=== PATIENT | male | born 1960 | race Caucasian/White ===

== ENCOUNTER 2021-11-20 17:16 | Inpatient (IN) ==
[2021-11-20 19:34] LABS: Basophils % 0.2 % (0.0-0.8); Eosinophils # 0.2 10*3/uL (0.0-0.87); Eosinophils % 3.4 % (0.00-10.9); Hematocrit 35.6 VOL% (42.0-52.0); Immature Granulocytes % 0.7 %; Immature Granulocytes Absolute 0.04 #; Lymphocytes # 0.3 10*3/uL (1.4-4.0); Lymphocytes % 5.6 % (21.2-54.2); Mean Corpuscular HGB Conc 30.9 GM/DL (32-36); Mean Corpuscular Volume 92.5 FL (87-102); Mean Platelet Volume 10.9 FL (9.6-12.0); Monocytes % 11.1 % (1.7-12.7); Platelet Count 111 T/CUMM (130-400); Red Blood Count 3.85 MC/CUMM (3.8-5.5); Red Cell Distribution Width 17.3 % (9.3-17.3); White Blood Count 5.6 T/CUMM (4-12)
[2021-11-20 20:02] LABS: Albumin 2.3 G/DL (3.4-5.0); Bilirubin,Total 0.6 MG/DL (0.20-1.00); Calcium 7.5 MG/DL (8.5-10.1); Osmolality,Calculated 275.4 MOS/KG (273-304); Total Protein 6.4 G/DL (6.4-8.2)
[2021-11-20] MEDS ORDERED: cefTRIAXone 1,000 MG in SODIUM CHLORIDE 0.9% 100 ML IV STA (20:26)
[2021-11-20] MEDS ORDERED: MAGNESIUM SULF RIDER 1 GM/100 ML PREMIX IV STA (20:26)
[2021-11-20] MEDS ORDERED: POTASSIUM CHLORIDE 20 MEQ TABLET PO STA (20:26)
[2021-11-20] MEDS ORDERED: MAGNESIUM SULF RIDER 2 GM/50 ML PREMIX IV STA (20:51)
[2021-11-20] MEDS ORDERED: DEXTROSE 50% 25 GM/50 ML VIAL IV PRN (21:38)
[2021-11-20] MEDS ORDERED: GLUCAGON 1 MG VIAL IM PRN ×2 (21:38)
[2021-11-20] MEDS ORDERED: DEXTROSE 50% 25 GM/50 ML SYRINGE IV PRN (21:38)
[2021-11-20] MEDS ORDERED: ACETAMINOPHEN 325 MG TABLET PO PRN (21:38)
[2021-11-20] MEDS ORDERED: ONDANSETRON 4 MG/2 ML VIAL IV PRN (21:38)
[2021-11-20] MEDS ORDERED: MAGNESIUM SULF RIDER 4 GM/100 ML PREMIX IV PRN (22:14)
[2021-11-20] MEDS ORDERED: MAGNESIUM SULF RIDER 2 GM/50 ML PREMIX IV PRN (22:14)
[2021-11-20] MEDS ORDERED: POTASSIUM CHLORIDE 20 MEQ TABLET PO PRN (22:15)
[2021-11-20] MEDS ORDERED: DIPHENOXYLATE/ATROPINE 2.5-0.025 MG TABLET PO PRN (22:19)
[2021-11-20] MEDS ORDERED: CALCIUM CARBONATE CHEW 500 MG TABLET PO PRN (22:19)
[2021-11-20] MEDS ORDERED: CYCLOBENZAPRINE 10 MG TABLET PO PRN (22:19)
[2021-11-20] MEDS: SODIUM CHLOR 0.9% KCL 40 MEQ 40 MEQ/1,000 ML BAG IV SCH (22:26)
[2021-11-20] MEDS: AZITHROMYCIN INJ 500 MG in SODIUM CHLORIDE 0.9% 250 ML IV SCH (22:43)
[2021-11-21 06:38] LABS: Basophils % 0.2 % (0.0-0.8); Eosinophils # 0.2 10*3/uL (0.0-0.87); Eosinophils % 4.4 % (0.00-10.9); Hematocrit 31.7 VOL% (42.0-52.0); Hemoglobin 9.7 GM/DL (14.0-18.0); Immature Granulocytes % 0.5 %; Immature Granulocytes Absolute 0.02 #; Lymphocytes # 0.3 10*3/uL (1.4-4.0); Lymphocytes % 6.7 % (21.2-54.2); Mean Corpuscular HGB Conc 30.6 GM/DL (32-36); Mean Corpuscular Volume 93.5 FL (87-102); Mean Platelet Volume 10.6 FL (9.6-12.0); Monocytes % 14.8 % (1.7-12.7); Neutrophils % 73.4 % (38.7-73.9); Platelet Count 111 T/CUMM (130-400); Red Blood Count 3.39 MC/CUMM (3.8-5.5); Red Cell Distribution Width 17.3 % (9.3-17.3); White Blood Count 4.3 T/CUMM (4-12)
[2021-11-21] MEDS: ALBUTEROL/IPRATROPIUM 3 ML NEB RESP TX SCH ×3 (06:55→19:15)
[2021-11-21 07:01] LABS: Osmolality,Calculated 280.3 MOS/KG (273-304); Potassium 3.2 MMOL/L (3.5-5.1)
[2021-11-21 07:03] LABS: Band Neutrophils 1 % (0-10); Eosinophils 4 % (0-10); Hypochromia 1+; Lymphocytes 10 % (20-55); Microcytosis 1+; Segmented Neutrophils 70 % (50-85); Total Cells Counted 100
[2021-11-21 07:05] LABS: Risk Ratio 3.58; VLDL Cholesterol 24.2 MG/DL
[2021-11-21] MEDS: MORPHINE ER 30 MG TABLET PO SCH ×2 (08:53→20:30)
[2021-11-21] MEDS: METOPROLOL TARTRATE 50 MG TABLET PO SCH ×2 (08:53→20:30)
[2021-11-21] MEDS: PANTOPRAZOLE 40 MG TABLET PO SCH (08:53)
[2021-11-21] MEDS: MAGNESIUM OXIDE 400 MG TABLET PO SCH ×2 (08:53→20:29)
[2021-11-21] MEDS: CHOLECALCIFEROL 1,000 UNIT TABLET PO SCH (08:53)
[2021-11-21] MEDS: CALCIUM (CARBONATE)/VITAMIN D 600 MG-400 UNIT TABLET PO SCH (08:53)
[2021-11-21] MEDS: LEVOTHYROXINE 175 MCG TABLET PO SCH (08:53)
[2021-11-21] MEDS: CYANOCOBALAMIN 500 MCG TABLET PO SCH (08:54)
[2021-11-21] MEDS: POTASSIUM CHLORIDE 20 MEQ TABLET PO SCH (08:54)
[2021-11-21] MEDS: PREGABALIN 75 MG CAPSULE PO SCH ×2 (08:54→20:31)
[2021-11-21] MEDS ORDERED: APIXABAN 5 MG TABLET PO SCH (09:00)
[2021-11-21] MEDS ORDERED: ENOXAPARIN 40 MG/0.4 ML SYRINGE SUBCUT SCH (09:00)
[2021-11-21] MEDS ORDERED: INFLUENZA VIRUS VACCINE 0.5 ML SYRINGE IM ONE (09:00)
[2021-11-21] MEDS: LENVATINIB PO SCH (10:08)
[2021-11-21] MEDS: INSULIN LISPRO 100 UNIT/ML SUBCUT SCH ×4 (10:08→20:36)
[2021-11-21] MEDS: EVEROLIMUS 5 MG PO SCH (10:08)
[2021-11-21] MEDS: SODIUM CHLOR 0.9% KCL 40 MEQ 40 MEQ/1,000 ML BAG IV SCH (11:48)
[2021-11-21] MEDS: ENOXAPARIN 100 MG/ML SYRINGE SUBCUT SCH (19:12)
[2021-11-21] MEDS: CEFEPIME 1,000 MG in SODIUM CHLORIDE 0.9% 100 ML IV SCH ×2 (19:14→23:30)
[2021-11-21] MEDS: POTASSIUM CHLORIDE RIDER 10 MEQ/100 ML PREMIX IV SCH ×2 (19:45→20:53)
[2021-11-21] MEDS: ATORVASTATIN 10 MG TABLET PO SCH (20:30)
[2021-11-21] MEDS ORDERED: cefTRIAXone 1,000 MG in SODIUM CHLORIDE 0.9% 100 ML IV SCH (21:00)
[2021-11-21] MEDS ORDERED: OMEGA 3 ACID ETHYL ESTERS 1 GM CAPSULE PO SCH (21:00)
[2021-11-21] MEDS: AZITHROMYCIN INJ 500 MG in SODIUM CHLORIDE 0.9% 250 ML IV SCH (22:03)
[2021-11-21] MEDS: HYDROmorphone 2 MG/1 ML VIAL IV PRN (23:28)
[2021-11-22] MEDS: SODIUM CHLOR 0.9% KCL 40 MEQ 40 MEQ/1,000 ML BAG IV SCH ×3 (00:24→19:27)
[2021-11-22] MEDS: POTASSIUM CHLORIDE RIDER 10 MEQ/100 ML PREMIX IV SCH ×2 (00:25→02:03)
[2021-11-22] MEDS: ALBUTEROL/IPRATROPIUM 3 ML NEB RESP TX SCH ×4 (00:42→19:00)
[2021-11-22] MEDS: ENOXAPARIN 100 MG/ML SYRINGE SUBCUT SCH ×2 (03:43→19:27)
[2021-11-22] MEDS: HYDROmorphone 2 MG/1 ML VIAL IV PRN (03:53)
[2021-11-22] MEDS: CEFEPIME 1,000 MG in SODIUM CHLORIDE 0.9% 100 ML IV SCH ×3 (04:00→19:27)
[2021-11-22 07:44] LABS: Basophils % 0.2 % (0.0-0.8); Eosinophils # 0.1 10*3/uL (0.0-0.87); Hematocrit 36.9 VOL% (42.0-52.0); Hemoglobin 11.4 GM/DL (14.0-18.0); Immature Granulocytes % 0.5 %; Immature Granulocytes Absolute 0.03 #; Lymphocytes # 0.5 10*3/uL (1.4-4.0); Lymphocytes % 7.6 % (21.2-54.2); Mean Corpuscular HGB Conc 30.9 GM/DL (32-36); Mean Corpuscular Volume 94.1 FL (87-102); Mean Platelet Volume 10.3 FL (9.6-12.0); Monocytes % 10.6 % (1.7-12.7); Neutrophils % 80.1 % (38.7-73.9); Platelet Count 113 T/CUMM (130-400); Red Blood Count 3.92 MC/CUMM (3.8-5.5); Red Cell Distribution Width 17.6 % (9.3-17.3)
[2021-11-22 08:08] LABS: Calcium 8.5 MG/DL (8.5-10.1); Osmolality,Calculated 277.4 MOS/KG (273-304); Potassium 4.7 MMOL/L (3.5-5.1)
[2021-11-22] MEDS: MAGNESIUM OXIDE 400 MG TABLET PO SCH ×2 (08:23→20:33)
[2021-11-22] MEDS: CALCIUM (CARBONATE)/VITAMIN D 600 MG-400 UNIT TABLET PO SCH (08:23)
[2021-11-22] MEDS: CHOLECALCIFEROL 1,000 UNIT TABLET PO SCH (08:23)
[2021-11-22] MEDS: MORPHINE ER 30 MG TABLET PO SCH (08:23)
[2021-11-22] MEDS: PREGABALIN 75 MG CAPSULE PO SCH (08:23)
[2021-11-22] MEDS: PANTOPRAZOLE 40 MG TABLET PO SCH (08:23)
[2021-11-22] MEDS: CYANOCOBALAMIN 500 MCG TABLET PO SCH (08:24)
[2021-11-22] MEDS: METOPROLOL TARTRATE 50 MG TABLET PO SCH ×2 (08:24→20:32)
[2021-11-22] MEDS: POTASSIUM CHLORIDE 20 MEQ TABLET PO SCH (08:24)
[2021-11-22] MEDS: LEVOTHYROXINE 175 MCG TABLET PO SCH (08:26)
[2021-11-22] MEDS: INSULIN LISPRO 100 UNIT/ML SUBCUT SCH ×4 (09:20→20:39)
[2021-11-22] MEDS ORDERED: SODIUM PHOSPHATE ENEMA 133 ML BOTTLE RECTAL ONE (14:15)
[2021-11-22] MEDS: LENVATINIB PO SCH (17:30)
[2021-11-22] MEDS: EVEROLIMUS 5 MG PO SCH (17:30)
[2021-11-22] MEDS: DORNASE ALFA 2.5 MG/2.5 ML VIAL RESP TX SCH (19:15)
[2021-11-22] MEDS: DOCUSATE SODIUM 100 MG CAPSULE PO SCH (20:32)
[2021-11-22] MEDS: ATORVASTATIN 10 MG TABLET PO SCH (20:32)
[2021-11-22] MEDS: PREGABALIN 100 MG CAPSULE PO SCH (20:32)
[2021-11-22] MEDS: OMEGA 3 ACID ETHYL ESTERS 1 GM CAPSULE PO SCH (20:32)
[2021-11-22] MEDS: MORPHINE ER 15 MG TABLET PO SCH (20:33)
[2021-11-22] MEDS: AZITHROMYCIN INJ 500 MG in SODIUM CHLORIDE 0.9% 250 ML IV SCH (21:50)
[2021-11-23] MEDS ORDERED: LORazepam 2 MG/1 ML VIAL IV ONE (00:32)
[2021-11-23] MEDS: CEFEPIME 1,000 MG in SODIUM CHLORIDE 0.9% 100 ML IV SCH ×4 (00:41→19:17)
[2021-11-23] MEDS: ALBUTEROL/IPRATROPIUM 3 ML NEB RESP TX SCH ×5 (00:53→19:07)
[2021-11-23] MEDS: SODIUM CHLOR 0.9% KCL 40 MEQ 40 MEQ/1,000 ML BAG IV SCH ×2 (02:10→15:26)
[2021-11-23 06:23] LABS: Basophils % 0.3 % (0.0-0.8); Eosinophils # 0.1 10*3/uL (0.0-0.87); Eosinophils % 1.8 % (0.00-10.9); Hematocrit 33.7 VOL% (42.0-52.0); Hemoglobin 10.4 GM/DL (14.0-18.0); Immature Granulocytes % 0.4 %; Immature Granulocytes Absolute 0.03 #; Lymphocytes # 0.5 10*3/uL (1.4-4.0); Lymphocytes % 6.9 % (21.2-54.2); Mean Corpuscular HGB Conc 30.9 GM/DL (32-36); Mean Corpuscular Volume 94.1 FL (87-102); Mean Platelet Volume 10.1 FL (9.6-12.0); Monocytes % 13.5 % (1.7-12.7); Neutrophils % 77.1 % (38.7-73.9); Platelet Count 126 T/CUMM (130-400); Red Blood Count 3.58 MC/CUMM (3.8-5.5); Red Cell Distribution Width 17.5 % (9.3-17.3); White Blood Count 7.1 T/CUMM (4-12)
[2021-11-23] MEDS: ENOXAPARIN 100 MG/ML SYRINGE SUBCUT SCH ×2 (06:34→19:17)
[2021-11-23 06:36] LABS: Calcium 8.7 MG/DL (8.5-10.1); Osmolality,Calculated 279.3 MOS/KG (273-304); Potassium 4.9 MMOL/L (3.5-5.1)
[2021-11-23] MEDS: DORNASE ALFA 2.5 MG/2.5 ML VIAL RESP TX SCH ×2 (07:45→19:12)
[2021-11-23] MEDS: METOPROLOL TARTRATE 50 MG TABLET PO SCH ×2 (08:23→21:02)
[2021-11-23] MEDS: POTASSIUM CHLORIDE 20 MEQ TABLET PO SCH (08:23)
[2021-11-23] MEDS: DOCUSATE SODIUM 100 MG CAPSULE PO SCH ×2 (08:24→21:01)
[2021-11-23] MEDS: CHOLECALCIFEROL 1,000 UNIT TABLET PO SCH (08:24)
[2021-11-23] MEDS: CYANOCOBALAMIN 500 MCG TABLET PO SCH (08:24)
[2021-11-23] MEDS: PREGABALIN 100 MG CAPSULE PO SCH ×2 (08:24→21:02)
[2021-11-23] MEDS: CALCIUM (CARBONATE)/VITAMIN D 600 MG-400 UNIT TABLET PO SCH (08:24)
[2021-11-23] MEDS: MAGNESIUM OXIDE 400 MG TABLET PO SCH ×2 (08:24→21:02)
[2021-11-23] MEDS: PANTOPRAZOLE 40 MG TABLET PO SCH (08:24)
[2021-11-23] MEDS: LEVOTHYROXINE 175 MCG TABLET PO SCH (08:24)
[2021-11-23] MEDS: MORPHINE ER 15 MG TABLET PO SCH ×2 (08:25→21:02)
[2021-11-23] MEDS: INSULIN LISPRO 100 UNIT/ML SUBCUT SCH ×4 (10:33→21:02)
[2021-11-23] MEDS: LENVATINIB PO SCH (10:34)
[2021-11-23] MEDS: EVEROLIMUS 5 MG PO SCH (10:34)
[2021-11-23] MEDS: FUROSEMIDE 40 MG/4 ML VIAL IV SCH (12:54)
[2021-11-23] MEDS: OMEGA 3 ACID ETHYL ESTERS 1 GM CAPSULE PO SCH (21:02)
[2021-11-23] MEDS: ATORVASTATIN 10 MG TABLET PO SCH (21:02)
[2021-11-23] MEDS: AZITHROMYCIN INJ 500 MG in SODIUM CHLORIDE 0.9% 250 ML IV SCH (21:10)
[2021-11-23] MEDS: LORazepam 2 MG/1 ML VIAL IV PRN (22:06)
[2021-11-24] MEDS: CEFEPIME 1,000 MG in SODIUM CHLORIDE 0.9% 100 ML IV SCH ×5 (00:53→22:33)
[2021-11-24] MEDS: ALBUTEROL/IPRATROPIUM 3 ML NEB RESP TX SCH ×5 (00:57→19:00)
[2021-11-24] MEDS: SODIUM CHLOR 0.9% KCL 40 MEQ 40 MEQ/1,000 ML BAG IV SCH ×2 (03:23→11:13)
[2021-11-24] MEDS: ENOXAPARIN 100 MG/ML SYRINGE SUBCUT SCH ×2 (06:10→21:05)
[2021-11-24] MEDS: DORNASE ALFA 2.5 MG/2.5 ML VIAL RESP TX SCH ×2 (07:47→19:09)
[2021-11-24] MEDS: INSULIN LISPRO 100 UNIT/ML SUBCUT SCH ×4 (07:52→21:07)
[2021-11-24 08:36] LABS: Basophils % 0.4 % (0.0-0.8); Eosinophils # 0.3 10*3/uL (0.0-0.87); Eosinophils % 5.4 % (0.00-10.9); Hematocrit 31.9 VOL% (42.0-52.0); Hemoglobin 9.7 GM/DL (14.0-18.0); Immature Granulocytes % 0.8 %; Immature Granulocytes Absolute 0.04 #; Lymphocytes # 0.6 10*3/uL (1.4-4.0); Lymphocytes % 11.2 % (21.2-54.2); Mean Corpuscular HGB Conc 30.4 GM/DL (32-36); Mean Corpuscular Volume 94.7 FL (87-102); Mean Platelet Volume 10.1 FL (9.6-12.0); Monocytes % 12.9 % (1.7-12.7); NRBC # 0.02 10*3/uL; Neutrophils % 69.3 % (38.7-73.9); Platelet Count 112 T/CUMM (130-400); Red Blood Count 3.37 MC/CUMM (3.8-5.5); Red Cell Distribution Width 18.4 % (9.3-17.3); White Blood Count 5.2 T/CUMM (4-12)
[2021-11-24] MEDS: PREGABALIN 100 MG CAPSULE PO SCH ×2 (10:49→21:01)
[2021-11-24] MEDS: LEVOTHYROXINE 175 MCG TABLET PO SCH (10:49)
[2021-11-24] MEDS: CHOLECALCIFEROL 1,000 UNIT TABLET PO SCH (10:50)
[2021-11-24] MEDS: PANTOPRAZOLE 40 MG TABLET PO SCH (10:50)
[2021-11-24] MEDS: MAGNESIUM OXIDE 400 MG TABLET PO SCH ×2 (10:50→21:08)
[2021-11-24] MEDS: POTASSIUM CHLORIDE 20 MEQ TABLET PO SCH (10:50)
[2021-11-24] MEDS: DOCUSATE SODIUM 100 MG CAPSULE PO SCH ×2 (10:50→21:10)
[2021-11-24] MEDS: CALCIUM (CARBONATE)/VITAMIN D 600 MG-400 UNIT TABLET PO SCH (10:50)
[2021-11-24] MEDS: METHYLPHENIDATE 5 MG TABLET PO SCH (10:50)
[2021-11-24] MEDS: EVEROLIMUS 5 MG PO SCH (10:51)
[2021-11-24] MEDS: METOPROLOL TARTRATE 50 MG TABLET PO SCH ×2 (10:51→21:06)
[2021-11-24] MEDS: CYANOCOBALAMIN 500 MCG TABLET PO SCH (10:51)
[2021-11-24] MEDS: FUROSEMIDE 40 MG/4 ML VIAL IV SCH (10:51)
[2021-11-24] MEDS: MORPHINE ER 30 MG TABLET PO SCH ×2 (10:51→21:02)
[2021-11-24] MEDS: LENVATINIB PO SCH (10:52)
[2021-11-24 11:51] LABS: Hypochromia Slight
[2021-11-24 11:52] LABS: Platelet Estimate Adequate; Polychromasia Slight
[2021-11-24 17:06] LABS: Calcium 9.2 MG/DL (8.5-10.1); Potassium 4.3 MMOL/L (3.5-5.1)
[2021-11-24] MEDS ORDERED: MORPHINE ER 15 MG TABLET PO SCH (19:00)
[2021-11-24] MEDS: MORPHINE ER 15 MG TABLET PO SCH (21:02)
[2021-11-24] MEDS: ATORVASTATIN 10 MG TABLET PO SCH (21:03)
[2021-11-24] MEDS: LORazepam 2 MG/1 ML VIAL IV PRN (21:08)
[2021-11-24] MEDS: OMEGA 3 ACID ETHYL ESTERS 1 GM CAPSULE PO SCH (21:08)
[2021-11-24] MEDS: AZITHROMYCIN INJ 500 MG in SODIUM CHLORIDE 0.9% 250 ML IV SCH (21:29)
[2021-11-25] MEDS: ALBUTEROL/IPRATROPIUM 3 ML NEB RESP TX SCH ×4 (00:04→20:40)
[2021-11-25] MEDS: CEFEPIME 1,000 MG in SODIUM CHLORIDE 0.9% 100 ML IV SCH ×5 (00:27→22:28)
[2021-11-25 06:33] LABS: Basophils % 0.4 % (0.0-0.8); Eosinophils # 0.1 10*3/uL (0.0-0.87); Eosinophils % 3.1 % (0.00-10.9); Hematocrit 30.2 VOL% (42.0-52.0); Hemoglobin 9.3 GM/DL (14.0-18.0); Immature Granulocytes % 0.7 %; Immature Granulocytes Absolute 0.03 #; Lymphocytes # 0.5 10*3/uL (1.4-4.0); Lymphocytes % 11.1 % (21.2-54.2); Mean Corpuscular HGB Conc 30.8 GM/DL (32-36); Mean Corpuscular Volume 93.2 FL (87-102); Mean Platelet Volume 11.1 FL (9.6-12.0); Monocytes % 14.8 % (1.7-12.7); Neutrophils % 69.9 % (38.7-73.9); Platelet Count 106 T/CUMM (130-400); Red Blood Count 3.24 MC/CUMM (3.8-5.5); Red Cell Distribution Width 17.9 % (9.3-17.3); White Blood Count 4.6 T/CUMM (4-12)
[2021-11-25 06:57] LABS: Calcium 9.5 MG/DL (8.5-10.1); Osmolality,Calculated 275.7 MOS/KG (273-304); Potassium 4.2 MMOL/L (3.5-5.1)
[2021-11-25] MEDS: DORNASE ALFA 2.5 MG/2.5 ML VIAL RESP TX SCH ×3 (08:20→20:43)
[2021-11-25] MEDS: INSULIN LISPRO 100 UNIT/ML SUBCUT SCH ×4 (08:45→21:24)
[2021-11-25] MEDS: EVEROLIMUS 5 MG PO SCH (09:18)
[2021-11-25] MEDS: MAGNESIUM OXIDE 400 MG TABLET PO SCH ×2 (09:18→22:26)
[2021-11-25] MEDS: CYANOCOBALAMIN 500 MCG TABLET PO SCH (09:18)
[2021-11-25] MEDS: LENVATINIB PO SCH (09:18)
[2021-11-25] MEDS: DOCUSATE SODIUM 100 MG CAPSULE PO SCH ×2 (09:18→22:25)
[2021-11-25] MEDS: CHOLECALCIFEROL 1,000 UNIT TABLET PO SCH (09:18)
[2021-11-25] MEDS: METOPROLOL TARTRATE 50 MG TABLET PO SCH ×2 (09:18→22:26)
[2021-11-25] MEDS: POTASSIUM CHLORIDE 20 MEQ TABLET PO SCH (09:18)
[2021-11-25] MEDS: MORPHINE ER 30 MG TABLET PO SCH ×2 (09:19→21:23)
[2021-11-25] MEDS: LEVOTHYROXINE 175 MCG TABLET PO SCH (09:19)
[2021-11-25] MEDS: CALCIUM (CARBONATE)/VITAMIN D 600 MG-400 UNIT TABLET PO SCH (09:20)
[2021-11-25] MEDS: PREGABALIN 100 MG CAPSULE PO SCH ×2 (09:21→22:26)
[2021-11-25] MEDS: PANTOPRAZOLE 40 MG TABLET PO SCH (09:21)
[2021-11-25] MEDS: METHYLPHENIDATE 5 MG TABLET PO SCH (09:21)
[2021-11-25] MEDS: ENOXAPARIN 100 MG/ML SYRINGE SUBCUT SCH ×2 (09:22→22:25)
[2021-11-25] MEDS: FUROSEMIDE 40 MG/4 ML VIAL IV SCH (09:22)
[2021-11-25] MEDS ORDERED: ALPRAZolam 0.5 MG TABLET PO PRN ×2 (12:14→18:46)
[2021-11-25] MEDS: HYDROmorphone 2 MG/1 ML VIAL IV PRN ×2 (16:20→21:38)
[2021-11-25] MEDS ORDERED: ALUMINUM/MAGNES/SIMETH MAX STR 30 ML UDCUP PO PRN (18:46)
[2021-11-25] MEDS ORDERED: TEMAZEPAM 7.5 MG CAPSULE PO PRN (18:46)
[2021-11-25] MEDS ORDERED: chlorproMAZINE 25 MG TABLET PO PRN (18:46)
[2021-11-25] MEDS ORDERED: MYLANTA/LIDO VISC 2:1 300 ML BOTTLE SWISH/SWAL PRN (18:46)
[2021-11-25] MEDS ORDERED: guaiFENesin 200 MG/10 ML UDCUP PO PRN (18:46)
[2021-11-25] MEDS ORDERED: MYLANTA/LIDO VISC 2:1 300 ML BOTTLE SWISH/SPIT PRN (18:46)
[2021-11-25] MEDS ORDERED: LOPERAMIDE 2 MG CAPSULE PO PRN ×2 (18:46)
[2021-11-25] MEDS ORDERED: MAGNESIUM HYDROXIDE SUSP 30 ML UDCUP PO PRN (18:46)
[2021-11-25] MEDS ORDERED: chlorproMAZINE INJ 50 MG in SODIUM CHLORIDE 0.9% 100 ML IV PRN (18:46)
[2021-11-25] MEDS ORDERED: ONDANSETRON 4 MG/2 ML VIAL IV PRN (18:46)
[2021-11-25] MEDS ORDERED: diphenhydrAMINE CAP 25 MG CAPSULE PO PRN (18:46)
[2021-11-25] MEDS ORDERED: chlorproMAZINE INJ 25 MG in SODIUM CHLORIDE 0.9% 100 ML IV PRN (18:46)
[2021-11-25] MEDS ORDERED: PROMETHAZINE INJ 25 MG in SODIUM CHLORIDE 0.9% 50 ML IV PRN (18:46)
[2021-11-25] MEDS ORDERED: BENZTROPINE 2 MG/2 ML AMP IV PRN (18:46)
[2021-11-25] MEDS ORDERED: ACETAMINOPHEN 325 MG TABLET PO PRN (18:46)
[2021-11-25] MEDS ORDERED: traMADol 50 MG TABLET PO PRN (18:46)
[2021-11-25] MEDS ORDERED: LACTULOSE 20 GM/30 ML UDCUP PO PRN (18:46)
[2021-11-25] MEDS: MORPHINE ER 15 MG TABLET PO SCH (18:56)
[2021-11-25] MEDS: ATORVASTATIN 10 MG TABLET PO SCH (22:25)
[2021-11-25] MEDS: OMEGA 3 ACID ETHYL ESTERS 1 GM CAPSULE PO SCH (22:26)
[2021-11-26] MEDS: HYDROmorphone 2 MG/1 ML VIAL IV PRN ×7 (00:30→23:00)
[2021-11-26] MEDS: ALBUTEROL/IPRATROPIUM 3 ML NEB RESP TX SCH ×4 (01:56→18:38)
[2021-11-26 05:32] LABS: Basophils % 0.6 % (0.0-0.8); Eosinophils # 0.3 10*3/uL (0.0-0.87); Eosinophils % 4.8 % (0.00-10.9); Hematocrit 36.8 VOL% (42.0-52.0); Hemoglobin 11.2 GM/DL (14.0-18.0); Lymphocytes # 0.8 10*3/uL (1.4-4.0); Lymphocytes % 13.9 % (21.2-54.2); Mean Corpuscular HGB Conc 30.4 GM/DL (32-36); Mean Corpuscular Volume 94.6 FL (87-102); Mean Platelet Volume 11.2 FL (9.6-12.0); Platelet Count 135 T/CUMM (130-400); Red Blood Count 3.89 MC/CUMM (3.8-5.5); Red Cell Distribution Width 17.3 % (9.3-17.3); White Blood Count 5.4 T/CUMM (4-12)
[2021-11-26 05:57] LABS: Calcium 10.6 MG/DL (8.5-10.1); Osmolality,Calculated 272.1 MOS/KG (273-304); Potassium 4.1 MMOL/L (3.5-5.1)
[2021-11-26] MEDS: CEFEPIME 1,000 MG in SODIUM CHLORIDE 0.9% 100 ML IV SCH ×4 (07:06→23:12)
[2021-11-26] MEDS: DORNASE ALFA 2.5 MG/2.5 ML VIAL RESP TX SCH ×2 (08:08→18:43)
[2021-11-26] MEDS: PREGABALIN 100 MG CAPSULE PO SCH ×2 (09:14→22:30)
[2021-11-26] MEDS: METHYLPHENIDATE 5 MG TABLET PO SCH (09:15)
[2021-11-26] MEDS: MAGNESIUM OXIDE 400 MG TABLET PO SCH ×2 (09:15→22:30)
[2021-11-26] MEDS: CYANOCOBALAMIN 500 MCG TABLET PO SCH (09:15)
[2021-11-26] MEDS: CHOLECALCIFEROL 1,000 UNIT TABLET PO SCH (09:15)
[2021-11-26] MEDS: POTASSIUM CHLORIDE 20 MEQ TABLET PO SCH (09:15)
[2021-11-26] MEDS: DOCUSATE SODIUM 100 MG CAPSULE PO SCH ×2 (09:15→22:29)
[2021-11-26] MEDS: PANTOPRAZOLE 40 MG TABLET PO SCH (09:16)
[2021-11-26] MEDS: LEVOTHYROXINE 175 MCG TABLET PO SCH (09:16)
[2021-11-26] MEDS: CALCIUM (CARBONATE)/VITAMIN D 600 MG-400 UNIT TABLET PO SCH (09:16)
[2021-11-26] MEDS: EVEROLIMUS 5 MG PO SCH (09:21)
[2021-11-26] MEDS: ENOXAPARIN 100 MG/ML SYRINGE SUBCUT SCH ×2 (09:25→18:31)
[2021-11-26] MEDS: INSULIN LISPRO 100 UNIT/ML SUBCUT SCH ×4 (10:08→22:29)
[2021-11-26] MEDS: LENVATINIB PO SCH (10:08)
[2021-11-26] MEDS: METOPROLOL TARTRATE 50 MG TABLET PO SCH ×2 (11:01→22:30)
[2021-11-26] MEDS: SODIUM CHLORIDE 0.9% 1,000 ML IV SCH ×2 (11:32→18:29)
[2021-11-26] MEDS: MORPHINE ER 30 MG TABLET PO SCH ×2 (11:49→22:30)
[2021-11-26] MEDS ORDERED: ZOLEDRONIC ACID 4 MG/100 ML PREMIX IV ONE (12:00)
[2021-11-26] MEDS ORDERED: SODIUM CHLORIDE 0.9% 1,000 ML IV ONE (16:26)
[2021-11-26] MEDS ORDERED: LIDOCAINE 2% TOP JELLY 20 ML VIAL INTRAURETH ONE (16:28)
[2021-11-26 16:56] LABS: Basophils % 0.4 % (0.0-0.8); Eosinophils # 0.1 10*3/uL (0.0-0.87); Eosinophils % 0.9 % (0.00-10.9); Hematocrit 34.9 VOL% (42.0-52.0); Hemoglobin 10.9 GM/DL (14.0-18.0); Immature Granulocytes % 0.7 %; Immature Granulocytes Absolute 0.04 #; Lymphocytes # 0.5 10*3/uL (1.4-4.0); Lymphocytes % 9.6 % (21.2-54.2); Mean Corpuscular HGB Conc 31.2 GM/DL (32-36); Mean Corpuscular Volume 91.8 FL (87-102); Mean Platelet Volume 10.6 FL (9.6-12.0); Monocytes % 13.1 % (1.7-12.7); Neutrophils % 75.3 % (38.7-73.9); Platelet Count 146 T/CUMM (130-400); Red Cell Distribution Width 17.4 % (9.3-17.3); White Blood Count 5.4 T/CUMM (4-12)
[2021-11-26 18:56] LABS: INR 1.1; PT Patient Result 12.6 SECS (10.5-12.0); Partial Thromboplastin Time 28.9 SECS (23.8-32.1)
[2021-11-26] MEDS: MORPHINE ER 15 MG TABLET PO SCH (22:29)
[2021-11-26] MEDS: TAMSULOSIN 0.4 MG CAPSULE PO SCH (22:29)
[2021-11-26] MEDS: ATORVASTATIN 10 MG TABLET PO SCH (22:30)
[2021-11-26] MEDS: OMEGA 3 ACID ETHYL ESTERS 1 GM CAPSULE PO SCH (22:30)
[2021-11-27] MEDS: ALBUTEROL/IPRATROPIUM 3 ML NEB RESP TX SCH ×4 (01:30→19:22)
[2021-11-27] MEDS: SODIUM CHLORIDE 0.9% 1,000 ML IV SCH ×2 (02:18→18:38)
[2021-11-27] MEDS: HYDROmorphone 2 MG/1 ML VIAL IV PRN (03:05)
[2021-11-27] MEDS: CEFEPIME 1,000 MG in SODIUM CHLORIDE 0.9% 100 ML IV SCH (05:19)
[2021-11-27] MEDS: DORNASE ALFA 2.5 MG/2.5 ML VIAL RESP TX SCH ×2 (07:43→19:22)
[2021-11-27 07:48] LABS: Basophils % 0.5 % (0.0-0.8); Eosinophils # 0.1 10*3/uL (0.0-0.87); Eosinophils % 1.9 % (0.00-10.9); Hematocrit 36.8 VOL% (42.0-52.0); Lymphocytes # 0.4 10*3/uL (1.4-4.0); Lymphocytes % 7.1 % (21.2-54.2); Mean Corpuscular HGB Conc 29.9 GM/DL (32-36); Mean Corpuscular Volume 94.4 FL (87-102); Mean Platelet Volume 10.8 FL (9.6-12.0); Monocytes % 10.7 % (1.7-12.7); Neutrophils % 79.1 % (38.7-73.9); Platelet Count 137 T/CUMM (130-400); Red Cell Distribution Width 18.2 % (9.3-17.3); White Blood Count 5.9 T/CUMM (4-12)
[2021-11-27 08:09] LABS: Calcium 9.8 MG/DL (8.5-10.1); Osmolality,Calculated 270.2 MOS/KG (273-304); Potassium 4.4 MMOL/L (3.5-5.1)
[2021-11-27] MEDS: LORazepam 2 MG/1 ML VIAL IV PRN (08:28)
[2021-11-27] MEDS: ENOXAPARIN 100 MG/ML SYRINGE SUBCUT SCH (08:37)
[2021-11-27] MEDS ORDERED: NALOXONE 0.4 MG/ML VIAL IV PRN (09:04)
[2021-11-27] MEDS: TAMSULOSIN 0.4 MG CAPSULE PO SCH ×2 (09:41→23:22)
[2021-11-27] MEDS: DOCUSATE SODIUM 100 MG CAPSULE PO SCH ×2 (09:41→23:22)
[2021-11-27] MEDS: INSULIN LISPRO 100 UNIT/ML SUBCUT SCH ×4 (09:41→23:22)
[2021-11-27] MEDS: CHOLECALCIFEROL 1,000 UNIT TABLET PO SCH (09:42)
[2021-11-27] MEDS: MORPHINE ER 30 MG TABLET PO SCH ×2 (09:42→23:23)
[2021-11-27] MEDS: LEVOTHYROXINE 175 MCG TABLET PO SCH (09:42)
[2021-11-27] MEDS: PREGABALIN 100 MG CAPSULE PO SCH ×2 (09:42→23:23)
[2021-11-27] MEDS: CYANOCOBALAMIN 500 MCG TABLET PO SCH (09:42)
[2021-11-27] MEDS: MAGNESIUM OXIDE 400 MG TABLET PO SCH ×2 (09:42→23:23)
[2021-11-27] MEDS: PANTOPRAZOLE 40 MG TABLET PO SCH (09:42)
[2021-11-27] MEDS: POTASSIUM CHLORIDE 20 MEQ TABLET PO SCH (09:42)
[2021-11-27] MEDS: METOPROLOL TARTRATE 50 MG TABLET PO SCH ×2 (09:42→23:22)
[2021-11-27] MEDS: HYDROmorphone PCA 30 MG/30 ML SYRINGE IV SCH (12:40)
[2021-11-27] MEDS: ENOXAPARIN 40 MG/0.4 ML SYRINGE SUBCUT SCH (15:53)
[2021-11-27] MEDS: MORPHINE ER 15 MG TABLET PO SCH (18:15)
[2021-11-27] MEDS: ATORVASTATIN 10 MG TABLET PO SCH (23:22)
[2021-11-27] MEDS: OMEGA 3 ACID ETHYL ESTERS 1 GM CAPSULE PO SCH (23:22)
[2021-11-28] MEDS: ALBUTEROL/IPRATROPIUM 3 ML NEB RESP TX SCH ×4 (04:16→20:49)
[2021-11-28] MEDS: SODIUM CHLORIDE 0.9% 1,000 ML IV SCH ×2 (05:29→06:12)
[2021-11-28 07:23] LABS: Basophils % 0.5 % (0.0-0.8); Eosinophils # 0.1 10*3/uL (0.0-0.87); Eosinophils % 3.3 % (0.00-10.9); Hemoglobin 10.6 GM/DL (14.0-18.0); Lymphocytes # 0.3 10*3/uL (1.4-4.0); Lymphocytes % 6.6 % (21.2-54.2); Mean Corpuscular HGB Conc 30.3 GM/DL (32-36); Mean Corpuscular Volume 94.1 FL (87-102); Mean Platelet Volume 9.8 FL (9.6-12.0); Monocytes % 10.9 % (1.7-12.7); Neutrophils % 77.9 % (38.7-73.9); Platelet Count 132 T/CUMM (130-400); Red Blood Count 3.72 MC/CUMM (3.8-5.5)
[2021-11-28 07:45] LABS: Band Neutrophils 4 % (0-10); Eosinophils 2 % (0-10); Lymphocytes 6 % (20-55); Platelet Estimate Adequate; Segmented Neutrophils 71 % (50-85)
[2021-11-28 07:46] LABS: Anisocytosis 1+; Macrocytosis Slight
[2021-11-28] MEDS: DORNASE ALFA 2.5 MG/2.5 ML VIAL RESP TX SCH ×2 (07:47→20:49)
[2021-11-28 07:49] LABS: Calcium 9.1 MG/DL (8.5-10.1); Osmolality,Calculated 273.1 MOS/KG (273-304); Potassium 4.2 MMOL/L (3.5-5.1)
[2021-11-28] MEDS: INSULIN LISPRO 100 UNIT/ML SUBCUT SCH ×4 (08:37→23:32)
[2021-11-28] MEDS: POTASSIUM CHLORIDE 20 MEQ TABLET PO SCH (08:38)
[2021-11-28] MEDS: TAMSULOSIN 0.4 MG CAPSULE PO SCH ×2 (08:38→23:32)
[2021-11-28] MEDS: METOPROLOL TARTRATE 50 MG TABLET PO SCH ×2 (08:38→23:32)
[2021-11-28] MEDS: MORPHINE ER 30 MG TABLET PO SCH ×2 (08:38→23:33)
[2021-11-28] MEDS: MAGNESIUM OXIDE 400 MG TABLET PO SCH ×2 (08:38→23:32)
[2021-11-28] MEDS: DOCUSATE SODIUM 100 MG CAPSULE PO SCH ×2 (08:38→23:31)
[2021-11-28] MEDS: PREGABALIN 100 MG CAPSULE PO SCH ×2 (08:38→23:32)
[2021-11-28] MEDS: PANTOPRAZOLE 40 MG TABLET PO SCH (08:39)
[2021-11-28] MEDS: CHOLECALCIFEROL 1,000 UNIT TABLET PO SCH (08:39)
[2021-11-28] MEDS: LEVOTHYROXINE 175 MCG TABLET PO SCH (08:39)
[2021-11-28] MEDS: CYANOCOBALAMIN 500 MCG TABLET PO SCH (08:39)
[2021-11-28] MEDS: ENOXAPARIN 40 MG/0.4 ML SYRINGE SUBCUT SCH (17:11)
[2021-11-28] MEDS: MORPHINE ER 15 MG TABLET PO SCH (20:07)
[2021-11-28] MEDS: OMEGA 3 ACID ETHYL ESTERS 1 GM CAPSULE PO SCH (23:32)
[2021-11-28] MEDS: ATORVASTATIN 10 MG TABLET PO SCH (23:32)
[2021-11-29] MEDS: HYDROmorphone 2 MG/1 ML VIAL IV PRN (00:10)
[2021-11-29] MEDS: HYDROmorphone PCA 30 MG/30 ML SYRINGE IV SCH ×2 (00:15→01:11)
[2021-11-29] MEDS: ALBUTEROL/IPRATROPIUM 3 ML NEB RESP TX SCH ×4 (02:14→19:00)
[2021-11-29] MEDS: SODIUM CHLORIDE 0.9% 1,000 ML IV SCH ×2 (02:23→04:42)
[2021-11-29] MEDS: DORNASE ALFA 2.5 MG/2.5 ML VIAL RESP TX SCH ×2 (08:02→21:27)
[2021-11-29] MEDS: DOCUSATE SODIUM 100 MG CAPSULE PO SCH ×2 (09:11→21:27)
[2021-11-29] MEDS: INSULIN LISPRO 100 UNIT/ML SUBCUT SCH ×4 (09:11→21:28)
[2021-11-29] MEDS: TAMSULOSIN 0.4 MG CAPSULE PO SCH ×2 (09:11→21:27)
[2021-11-29] MEDS: POTASSIUM CHLORIDE 20 MEQ TABLET PO SCH (09:11)
[2021-11-29] MEDS: MAGNESIUM OXIDE 400 MG TABLET PO SCH ×2 (09:12→21:29)
[2021-11-29] MEDS: PREGABALIN 100 MG CAPSULE PO SCH ×2 (09:12→21:28)
[2021-11-29] MEDS: CYANOCOBALAMIN 500 MCG TABLET PO SCH (09:12)
[2021-11-29] MEDS: PANTOPRAZOLE 40 MG TABLET PO SCH (09:12)
[2021-11-29] MEDS: CHOLECALCIFEROL 1,000 UNIT TABLET PO SCH (09:12)
[2021-11-29] MEDS: METOPROLOL TARTRATE 50 MG TABLET PO SCH ×2 (09:12→21:28)
[2021-11-29] MEDS: MORPHINE ER 30 MG TABLET PO SCH ×2 (09:12→21:28)
[2021-11-29] MEDS: LEVOTHYROXINE 175 MCG TABLET PO SCH (09:12)
[2021-11-29] MEDS: ENOXAPARIN 40 MG/0.4 ML SYRINGE SUBCUT SCH (09:14)
[2021-11-29] MEDS: MORPHINE ER 15 MG TABLET PO SCH (21:27)
[2021-11-29] MEDS: OMEGA 3 ACID ETHYL ESTERS 1 GM CAPSULE PO SCH (21:28)
[2021-11-29] MEDS: ATORVASTATIN 10 MG TABLET PO SCH (21:28)
[2021-11-29] MEDS: LORazepam 2 MG/1 ML VIAL IV PRN (22:16)
[2021-11-30] MEDS: ALBUTEROL/IPRATROPIUM 3 ML NEB RESP TX SCH ×3 (01:00→14:38)
[2021-11-30] MEDS: SODIUM CHLORIDE 0.9% 1,000 ML IV SCH (05:26)
[2021-11-30] MEDS: HYDROmorphone PCA 30 MG/30 ML SYRINGE IV SCH ×2 (07:58→11:14)
[2021-11-30 08:26] VITALS: BP 175/84
[2021-11-30] MEDS: DOCUSATE SODIUM 100 MG CAPSULE PO SCH (08:56)
[2021-11-30] MEDS: METOPROLOL TARTRATE 50 MG TABLET PO SCH (08:56)
[2021-11-30] MEDS: POTASSIUM CHLORIDE 20 MEQ TABLET PO SCH (08:56)
[2021-11-30] MEDS: INSULIN LISPRO 100 UNIT/ML SUBCUT SCH ×2 (08:56→11:29)
[2021-11-30] MEDS: TAMSULOSIN 0.4 MG CAPSULE PO SCH (08:56)
[2021-11-30] MEDS: LEVOTHYROXINE 175 MCG TABLET PO SCH (08:57)
[2021-11-30] MEDS: MAGNESIUM OXIDE 400 MG TABLET PO SCH (08:57)
[2021-11-30] MEDS: PREGABALIN 100 MG CAPSULE PO SCH (08:57)
[2021-11-30] MEDS: PANTOPRAZOLE 40 MG TABLET PO SCH (08:57)
[2021-11-30] MEDS: CHOLECALCIFEROL 1,000 UNIT TABLET PO SCH (08:57)
[2021-11-30] MEDS: CYANOCOBALAMIN 500 MCG TABLET PO SCH (08:57)
[2021-11-30] MEDS: MORPHINE ER 30 MG TABLET PO SCH (08:57)
[2021-11-30] MEDS: ENOXAPARIN 40 MG/0.4 ML SYRINGE SUBCUT SCH (09:24)
[2021-11-30] MEDS: DORNASE ALFA 2.5 MG/2.5 ML VIAL RESP TX SCH (14:38)
== END 2021-11-30 16:05 | disposition hospice, home (50) | DRG 542 ==
LOC: N.ED 17:16 → SUATTDRO 21:38 → N.2E 21:38 → N.TELES 11-22 17:39
PROVIDERS: ADMIT Emergency Medicine; ATTEND Hospitalist

== ENCOUNTER 2022-02-07 17:01 | Inpatient (IN) ==
[2022-02-07] MEDS ORDERED: SODIUM CHLORIDE 0.9% 1,000 ML IV STA (18:55)
[2022-02-07] MEDS ORDERED: ONDANSETRON 4 MG/2 ML VIAL IV STA (18:55)
[2022-02-07 19:58] LABS: Basophils % 0.3 % (0.0-0.8); Hematocrit 38.3 VOL% (42.0-52.0); Hemoglobin 11.4 GM/DL (14.0-18.0); Immature Granulocytes % 0.3 %; Immature Granulocytes Absolute 0.02 #; Lymphocytes # 0.5 10*3/uL (1.4-4.0); Lymphocytes % 8.4 % (21.2-54.2); Mean Corpuscular HGB Conc 29.8 GM/DL (32-36); Mean Corpuscular Volume 86.5 FL (87-102); Mean Platelet Volume 8.8 FL (9.6-12.0); Monocytes % 15.1 % (1.7-12.7); Neutrophils % 75.9 % (38.7-73.9); Platelet Count 165 T/CUMM (130-400); Red Blood Count 4.43 MC/CUMM (3.8-5.5); White Blood Count 5.8 T/CUMM (4-12)
[2022-02-07] MEDS ORDERED: ONDANSETRON 4 MG/2 ML VIAL IV PRN (20:07)
[2022-02-07] MEDS ORDERED: GLUCAGON 1 MG VIAL IM PRN ×2 (20:07)
[2022-02-07] MEDS ORDERED: DEXTROSE 50% 25 GM/50 ML VIAL IV PRN (20:07)
[2022-02-07] MEDS ORDERED: MORPHINE 4 MG/1 ML VIAL IV PRN (20:07)
[2022-02-07] MEDS ORDERED: ZOLEDRONIC ACID 4 MG/100 ML PREMIX IV ONE (20:10)
[2022-02-07] MEDS ORDERED: MORPHINE IR 15 MG TABLET PO PRN (20:11)
[2022-02-07] MEDS ORDERED: DEXTROSE 10% 250 ML BAG IV PRN (20:18)
[2022-02-07 20:23] LABS: Lymphocytes 4 % (20-55); Segmented Neutrophils 78 % (50-85); Total Cells Counted 100
[2022-02-07 20:25] LABS: Platelet Estimate Adequate
[2022-02-07 20:26] LABS: Hypochromia 1+
[2022-02-07 20:27] LABS: Anisocytosis 1+; Macrocytosis 1+; Polychromasia 1+
[2022-02-07 20:31] LABS: Alanine Aminotransferase 23 U/L (16-61); Albumin 2.3 G/DL (3.4-5.0); Alkaline Phosphatase 75 U/L (45-117); Aspartate Amino Transferase 16 U/L (0-37); Blood Urea Nitrogen 12 MG/DL (7-18); Calcium 10.8 MG/DL (8.5-10.1); Carbon Dioxide 32 MMOL/L (21-32); Estimated Glom Filtration Rate 120 ML/MIN; Glucose 58 MG/DL (74-106); Osmolality,Calculated 267.1 MOS/KG (273-304); Potassium 4.7 MMOL/L (3.5-5.1); Sodium 135 MMOL/L (136-145); Total Protein 6.5 G/DL (6.4-8.2)
[2022-02-07] MEDS: INSULIN LISPRO 100 UNIT/ML SUBCUT SCH (21:00)
[2022-02-07] MEDS: ATORVASTATIN 10 MG TABLET PO SCH (21:13)
[2022-02-07] MEDS: METOPROLOL TARTRATE 50 MG TABLET PO SCH (21:13)
[2022-02-07] MEDS: SODIUM CHLORIDE 0.9% 1,000 ML IV SCH (21:13)
[2022-02-07] MEDS: ENOXAPARIN 40 MG/0.4 ML SYRINGE SUBCUT SCH (21:13)
[2022-02-07 21:27] LABS: Hyaline Casts,Urine 1 /LPF (0-3); Mucus,Urine Occasional /LPF (Occasional); RBC,Urine 1 /HPF (0-4); Squamous Epithelial Cell,Urine Occasional /HPF (0-10)
[2022-02-07 21:28] LABS: Bilirubin,Urine Negative (Negative); Blood, Urine Negative (Negative); Glucose,Urine (UA) Negative (Negative); Ketones,Urine Negative (Negative); Nitrite,Urine Negative (Negative); Protein,Urine Negative; Urine Appearance Clear (Clear); Urine Color Yellow (Yellow); Urine Urobilinogen 0.2 EU/DL (<2.0); Urine pH 5.5 (4.5-8.0)
[2022-02-07] MEDS: PREGABALIN 75 MG CAPSULE PO SCH (22:55)
[2022-02-08] MEDS: SODIUM CHLORIDE 0.9% 1,000 ML IV SCH ×2 (04:17→12:10)
[2022-02-08 06:35] LABS: Basophils % 0.2 % (0.0-0.8); Hematocrit 32.9 VOL% (42.0-52.0); Hemoglobin 9.7 GM/DL (14.0-18.0); Immature Granulocytes % 0.4 %; Immature Granulocytes Absolute 0.02 #; Lymphocytes # 0.3 10*3/uL (1.4-4.0); Lymphocytes % 5.5 % (21.2-54.2); Mean Corpuscular HGB Conc 29.5 GM/DL (32-36); Mean Corpuscular Volume 86.1 FL (87-102); Mean Platelet Volume 9.1 FL (9.6-12.0); Monocytes % 13.1 % (1.7-12.7); Neutrophils % 80.8 % (38.7-73.9); Platelet Count 150 T/CUMM (130-400); Red Blood Count 3.82 MC/CUMM (3.8-5.5); Red Cell Distribution Width 19.7 % (9.3-17.3); White Blood Count 5.3 T/CUMM (4-12)
[2022-02-08 07:02] LABS: Calcium 10.1 MG/DL (8.5-10.1); Osmolality,Calculated 263.2 MOS/KG (273-304); Potassium 3.9 MMOL/L (3.5-5.1); Thyroid Stimulating Hormone 0.269 uIU/ml (0.358-3.74)
[2022-02-08] MEDS: INSULIN LISPRO 100 UNIT/ML SUBCUT SCH ×4 (07:30→21:37)
[2022-02-08] MEDS ORDERED: PIOGLITAZONE 15 MG TABLET PO SCH (09:00)
[2022-02-08] MEDS: PANTOPRAZOLE 40 MG TABLET PO SCH (09:07)
[2022-02-08] MEDS: PREGABALIN 75 MG CAPSULE PO SCH ×2 (09:07→21:37)
[2022-02-08] MEDS: POLYETHYLENE GLYCOL POWDER 17 GM PACK PO SCH (09:07)
[2022-02-08] MEDS: METOPROLOL TARTRATE 50 MG TABLET PO SCH ×2 (09:07→21:37)
[2022-02-08] MEDS: MORPHINE ER 30 MG TABLET PO SCH (11:50)
[2022-02-08] MEDS: DEXTROSE 5% 1,000 ML IV SCH ×2 (13:47→23:40)
[2022-02-08] MEDS ORDERED: MORPHINE ER 15 MG TABLET PO SCH (21:00)
[2022-02-08] MEDS: ENOXAPARIN 40 MG/0.4 ML SYRINGE SUBCUT SCH (21:37)
[2022-02-08] MEDS: ATORVASTATIN 10 MG TABLET PO SCH (21:37)
[2022-02-09] MEDS: POLYETHYLENE GLYCOL POWDER 17 GM PACK PO SCH (10:06)
[2022-02-09] MEDS: PREGABALIN 75 MG CAPSULE PO SCH (10:07)
[2022-02-09] MEDS: MORPHINE ER 30 MG TABLET PO SCH (10:08)
[2022-02-09] MEDS: METOPROLOL TARTRATE 50 MG TABLET PO SCH (10:08)
[2022-02-09] MEDS: PANTOPRAZOLE 40 MG TABLET PO SCH (10:08)
[2022-02-09] MEDS: INSULIN LISPRO 100 UNIT/ML SUBCUT SCH ×2 (10:09→13:48)
[2022-02-09] MEDS: DEXTROSE 5% 1,000 ML IV SCH (10:09)
[2022-02-09 12:25] VITALS: BP 138/71
== END 2022-02-09 13:04 | disposition home health service (06) | DRG 641 ==
LOC: EDBD → EDUNIT# → N.ED 17:01 → N.5E 20:07
PROVIDERS: ADMIT Internal Medicine; ATTEND Internal Medicine